=== PATIENT | male | born 1990 | race African-American/Black ===

== ENCOUNTER 2020-02-06 06:28 | Inpatient (IN) | payer BC ==
--- NOTE | 2020-02-06 06:39 | PDOC ---
History of Present Illness - General Chief Complaint: Sickle Cell Crisis Stated Complaint: SICKLE CELL PAIN Time Seen by Provider: 02/06/20 06:39 History Source: Patient Exam Limitations: No Limitations - History of Present Illness Initial Comments: 02/06/20 06:55 This is a 29-year-old male who comes in complaining of pain in his low back radiating to his legs. Patient has a history of sickle cell anemia. Patient was at another facility 4 days ago and treated for similar symptoms. Patient said he felt better and now the pain is back. Patient otherwise denies any fevers or chills. Patient denies any abdominal pain chest pain cough congestion or any other symptoms. Allergies: as per nursing notes Past Medical History: none Social history: Lives with family. No smoking. No alcohol. No illicit drugs. Surgical history: None General: No fevers or chills, no weakness, no weight loss HEENT: No change in vision. No sore throat,. No ear pain CardioVascular: no chest discomfort. No shortness of breath Respiratory:No cough, or wheezing. Gastrointestinal: no nausea, vomiting, diarrhea or constipation, No rectal bleeding Genitourinary: No dysuria, hematuria, or frequency Musculoskeletal: No joint or muscle pain or swelling, sickle cell pain Neurologic: No headache, vertigo, dizziness or loss of consciousness Psychiatric: nor depression Skin: No rashes or easy bruising Endocrine: no increased thirst or abnormal weight change Allergic: no skin or latex allergy All other systems reviewed and normal Exam: General: Well-nourished well-developed individual, no acute distress HEENT: Throat: Normal, tonsils normal, no erythema or exudate Neck: Supple, no meningeal signs, no lymphadenopathy Eyes::Pupils equal reactive and round, extraocular motion intact Chest: Nontender to palpation Cardiac: S1-S2 normal, regular rate and rhythm, no murmurs rubs or gallops Respiratory: Lungs clear to auscultation bilateral Abdomen: Soft, nondistended, normal bowel sounds, there is no tenderness on palpation diffusely Back: There is no tenderness on palpation of the spine or paraspinal area. There is no tenderness on palpation of the sciatic notch area. Extremities: Warm, dry, no cyanosis, clubbing, or edema Skin: No rashes Neuro: Alert and oriented x3, CN II - XII intact, nonfocal exam with normal strength, normal sensation, normal reflexes, normal gait, Psych: Normal mood and affect Assessment and plan: This is a 29-year-old male with a exacerbation of his sickle cell fluids and labs were sent. Care this patient was transferred to Dr. Telles at 7 AM. Case discussed in detail with oncoming Emergency Physician including history, physical exam and ancillary studies. Oncoming Emergency Physician has assumed care for the patient and will complete the evaluation and treatment. Patient is aware of the plan. Pt is clinically unchanged and stable. Past History - Medical History Allergies/Adverse Reactions: Allergies Allergy/AdvReac Type Severity Reaction Status Date / Time No Known Allergies Allergy Verified 09/20/19 22:32 Home Medications: Ambulatory Orders Hydroxyurea [Droxia] 2,000 mg PO DAILY 02/26/12 oxyCODONE HCL [Oxycodone HCl] 5 mg PO PRN 09/20/19 COPD: No - Surgical History Cholecystectomy: Yes - Psycho-Social/Smoking History Smoking Status: No Smoking History: Never smoked Have you smoked in the past 12 months: No Number of Cigarettes Smoked Daily: 0 Discharge - Discharge Information Problems reviewed: Yes Clinical Impression/Diagnosis: Sickle cell anemia Qualifiers: Sickle-cell associated disorders: with unspecified crisis Qualified Code(s): D57.00 - Hb-SS disease with crisis, unspecified; D57.0 - Hb-SS disease with crisis - Follow up/Referral - Patient Discharge Instructions - Post Discharge Activity
[2020-02-06] MEDS ORDERED: SODIUM CHLORIDE 1,000 ML ONE (06:51)
[2020-02-06] MEDS ORDERED: HYDROmorphone HCL CARPU-JECT 1 MG/1 ML DISP.SYRIN IVPUSH ONE ×3 (06:54→10:33)
[2020-02-06] MEDS ORDERED: KETOROLAC TROMETHAMINE 30 MG/1 ML VIAL IVPUSH ONE (06:54)
[2020-02-06] MEDS ORDERED: KETOROLAC TROMETHAMINE 30 MG/1 ML VIAL ONE (06:59)
[2020-02-06] MEDS ORDERED: HYDROmorphone HCL CARPU-JECT 1 MG/1 ML DISP.SYRIN ONE ×2 (06:59→08:47)
[2020-02-06 08:30] LABS: ALBUMIN 4.3 g/dl (3.4-5.0); BILIRUBIN,TOTAL 4.4 mg/dL (0.2-1); CALCIUM 8.7 mg/dL (8.5-10.1); CREATININE 0.7 mg/dL (0.55-1.3); POTASSIUM 4.3 mmol/L (3.5-5.1); TOT PROT 7.5 g/dl (6.4-8.2)
[2020-02-06 08:31] LABS: BASO % 0.8 % (0-2.0); EOS % 7.1 % (0-4.5); HEMOGLOBIN 9.7 GM/dL (11.7-16.9); LYMPH % 37.3 % (8-40); MCH 38.1 pg (25.7-33.7); MCHC 34.7 g/dl (32.0-35.9); MEAN CELL VOLUME 109.7 fl (80-96); MEAN PLT VOLUME 8.7 fl (7.5-11.1); MONO % 8.3 % (3.8-10.2); NEUT % 46.5 % (42.8-82.8); PLATELET COUNT 213 K/MM3 (134-434); RBC 2.55 M/mm3 (4.00-5.60); RDW 18.9 % (11.9-15.9); WHITE BLOOD COUNT 7.6 K/mm3 (4.0-10.0)
[2020-02-06 08:33] LABS: RETICULOCYTES 4.66 % (0.5-1.5)
[2020-02-06 09:51] LABS: ANISOCYTOSIS 1+; MACROCYTOSIS 1+; PLATELET ESTIMATE NORMAL; TARGET CELLS 1+
[2020-02-06] MEDS ORDERED: HYDROmorphone HCl 2 MG/ML VIAL ONE (10:34)
--- NOTE | 2020-02-06 14:16 | PDOC ---
*Physical Exam - Vital Signs Last Vital Signs Temp Pulse Resp BP Pulse Ox 98.2 F 58 L 17 128/79 100 02/06/20 06:40 02/06/20 13:29 02/06/20 13:29 02/06/20 13:29 02/06/20 13:29 ED Treatment Course - LABORATORY CBC & Chemistry Diagram: 02/06/20 07:12 02/06/20 07:12 - ADDITIONAL ORDERS Additional order review: Laboratory Results 02/06/20 07:12 Sodium 141 Potassium 4.3 Chloride 109 H Carbon Dioxide 25 Anion Gap 7 L BUN 13.0 Creatinine 0.7 Est GFR (CKD-EPI)AfAm 145.74 Est GFR (CKD-EPI)NonAf 125.75 Random Glucose 97 Calcium 8.7 Total Bilirubin 4.4 H AST 54 H ALT 49 Alkaline Phosphatase 95 Total Protein 7.5 Albumin 4.3 02/06/20 07:12 RBC 2.55 L MCV 109.7 H MCHC 34.7 RDW 18.9 H MPV 8.7 Neutrophils % 46.5 Lymphocytes % 37.3 Monocytes % 8.3 Eosinophils % 7.1 H Basophils % 0.8 - Medications Given in the ED: ED Medications Discontinued Medications Generic Name Dose Route Start Last Admin Trade Name Freq PRN Reason Stop Dose Admin Hydromorphone HCl 1 mg 02/06/20 06:54 02/06/20 07:24 Dilaudid Injection - IVPUSH 02/06/20 06:55 1 mg ONCE ONE Administration Hydromorphone HCl 1 mg 02/06/20 08:46 02/06/20 08:54 Dilaudid Injection - IVPUSH 02/06/20 08:47 1 mg ONCE ONE Administration Hydromorphone HCl 2 mg 02/06/20 10:33 02/06/20 10:30 Dilaudid Injection - IVPUSH 02/06/20 10:34 2 mg ONCE ONE Administration Sodium Chloride 1,000 mls @ 1,000 mls/hr 02/06/20 06:51 02/06/20 07:24 Normal Saline - IV 02/06/20 07:50 1,000 mls/hr .Q1H ONE Administration Ketorolac Tromethamine 30 mg 02/06/20 06:54 02/06/20 07:25 Toradol Injection - IVPUSH 02/06/20 06:55 30 mg ONCE ONE Administration Medical Decision Making - Medical Decision Making 02/06/20 14:14 Sign out taken from Dr. Dukes at 7am. Pt is 29 M with SCD presenting with sickle cell pain crisis. Labs consistent with sickle cell crisis. Pt received 3 rounds of IV dilaudid, still reporting persistent pain. Will admit for pain control Discharge - Discharge Information Problems reviewed: Yes Clinical Impression/Diagnosis: Back pain, Sickle cell crisis Sickle cell anemia Qualifiers: Sickle-cell associated disorders: with unspecified crisis Qualified Code(s): D57.00 - Hb-SS disease with crisis, unspecified - Admission Yes - Follow up/Referral - Patient Discharge Instructions - Post Discharge Activity
--- NOTE | 2020-02-06 15:04 | HP ---
CHIEF COMPLAINT: Low back pain PCP: None Hematology: Dr. Gaviria HISTORY OF PRESENT ILLNESS: This is a 29-year-old male with hx of sickle cell anemia,who comes in c/o worsening low back pain which radiates down to both legs. Pt reports that he was in [facility] until Friday when he started having lower back pain radiates down to his legs, took Percocet at home with no significant pain relief. Went to [facility] emergency room on Friday, and he received Morphine, Dilaudid and discharged to home. Pt reports that pain never went away completely, and woke up early this morning with severe low back pain pain, came to ER for pain management. Pt denies ALLEN, dizziness, weakness, cp, sob, cough,palpitations, abdominal pain, N/V/D or urinary symptoms. Pt received Morphine,Dilaudid and Toradol and IVF with some relief. Pt placed on observation for pain management. ER course was notable for: (1)wbc 7.6, Hgb 9.7, Hct 28 (2)Na 141, K 4.3, bun 13, ,cre 0.7 (3) CXR ordered Recent Travel:No and no known exposure to Covid PAST MEDICAL HISTORY: As mentioned above PAST SURGICAL HISTORY: GB removal in 2001 Rt Hip procedure 2006 Social History: Smoking:No Alcohol: Social ( rare) Drugs: None * Family hx Mother: Sickle cell trait, HTN, renal transplant Father - Sickle cell trait Siblings 5 one sister at age 7 due to sickle cell crisis 2 siblings have sickle cell trait, one sibling is free of sickle cell Allergies No Known Allergies Allergy (Verified 02/06/20 07:33) HOME MEDICATIONS: Home Medications Medication Instructions Recorded Hydroxyurea [Droxia] 2,000 mg PO DAILY 02/26/12 oxyCODONE HCL [Oxycodone HCl] 5 mg PO PRN 09/20/19 Folic Acid 1 mg PO DAILY 02/06/20 REVIEW OF SYSTEMS CONSTITUTIONAL: Absent: fever, chills, diaphoresis, generalized weakness, malaise, loss of appetite, weight change HEENT: Absent: rhinorrhea, nasal congestion, throat pain, throat swelling, difficulty swallowing, mouth swelling, ear pain, eye pain, visual changes CARDIOVASCULAR: Absent: chest pain, syncope, palpitations, irregular heart rate, lightheadedness, peripheral edema RESPIRATORY: Absent: cough, shortness of breath, dyspnea with exertion, orthopnea, wheezing, stridor, hemoptysis GASTROINTESTINAL: Absent: abdominal pain, abdominal distension, nausea, vomiting, diarrhea, constipation, melena, hematochezia GENITOURINARY: Absent: dysuria, frequency, urgency, hesitancy, hematuria, flank pain, genital pain MUSCULOSKELETAL: Low back pain radiates to both legs Absent: myalgia, arthralgia, joint swelling, back pain, neck pain SKIN: Absent: rash, itching, pallor HEMATOLOGIC/IMMUNOLOGIC: Absent: easy bleeding, easy bruising, lymphadenopathy, frequent infections ENDOCRINE: Absent: unexplained weight gain, unexplained weight loss, heat intolerance, cold intolerance NEUROLOGIC: Absent: headache, focal weakness or paresthesias, dizziness, unsteady gait, seizure, mental status changes, bladder or bowel incontinence PSYCHIATRIC: Absent: anxiety, depression, suicidal or homicidal ideation, hallucinations. PHYSICAL EXAMINATION Vital Signs - 24 hr 02/06/20 02/06/20 02/06/20 06:40 10:26 13:29 Temperature 98.2 F Pulse Rate 70 Pulse Rate [ 59 L 58 L Left] Respiratory 18 16 17 Rate Blood Pressure 131/80 Blood Pressure 137/88 128/79 [Right Arm] O2 Sat by Pulse 96 100 100 Oximetry (%) GENERAL: Awake, alert, and fully oriented, in no acute distress. HEAD: Normal with no signs of trauma. EYES: Pupils equal, round and reactive to light, extraocular movements intact, sclera anicteric, conjunctiva clear. No lid lag. EARS, NOSE, THROAT: Ears normal, nares patent, oropharynx clear without exudates. Moist mucous membranes. NECK: Normal range of motion, supple without lymphadenopathy, JVD, or masses. LUNGS: Breath sounds equal, clear to auscultation bilaterally. No wheezes, and no crackles. No accessory muscle use. HEART: Regular rate and rhythm, normal S1 and S2 without murmur, rub or gallop. ABDOMEN: Soft, nontender, not distended, normoactive bowel sounds, no guarding, no rebound, no masses. No hepatomegaly or splenomegaly. MUSCULOSKELETAL: Normal range of motion at all joints. No bony deformities or tenderness. No CVA tenderness. UPPER EXTREMITIES: 2+ pulses, warm, well-perfused. No cyanosis. No clubbing. No peripheral edema. LOWER EXTREMITIES: 2+ pulses, warm, well-perfused. No calf tenderness. No peripheral edema. NEUROLOGICAL: Cranial nerves II-XII intact. Normal speech. Normal gait. PSYCHIATRIC: Cooperative. Good eye contact. Appropriate mood and affect. SKIN: Warm, dry, normal turgor, no rashes or lesions noted, normal capillary refill. Laboratory Results - last 24 hr 02/06/20 02/06/20 07:12 07:12 WBC 7.6 RBC 2.55 L Hgb 9.7 L Hct 28.0 L MCV 109.7 H MCH 38.1 H MCHC 34.7 RDW 18.9 H Plt Count 213 MPV 8.7 Absolute Neuts (auto) 3.5 Neutrophils % 46.5 Neutrophils % (Manual) 38.4 L Band Neutrophils % 0.0 Lymphocytes % 37.3 Lymphocytes % (Manual) 51.5 H Monocytes % 8.3 Monocytes % (Manual) 6 Eosinophils % 7.1 H Eosinophils % (Manual) 3.0 Basophils % 0.8 Basophils % (Manual) 0.0 Myelocytes % (Man) 1 Promyelocytes % (Man) 0 Blast Cells % (Manual) 0 Nucleated RBC % 5 H Metamyelocytes 0 Hypochromia 0 Platelet Estimate Normal Polychromasia 1+ Poikilocytosis 1+ Anisocytosis 1+ Microcytosis 0 Macrocytosis 1+ Target Cells 1+ Retic Count 4.66 H Sodium 141 Potassium 4.3 Chloride 109 H Carbon Dioxide 25 Anion Gap 7 L BUN 13.0 Creatinine 0.7 Est GFR (CKD-EPI)AfAm 145.74 Est GFR (CKD-EPI)NonAf 125.75 Random Glucose 97 Calcium 8.7 Total Bilirubin 4.4 H AST 54 H ALT 49 Alkaline Phosphatase 95 Total Protein 7.5 Albumin 4.3 ASSESSMENT/PLAN: 29-year-old male with hx of sickle cell anemia, here with sickle cell crisis. * Sickle cell crisis - pain control - IV hydration - will cont on Hydroxyurea and Folic acid * Anemia - unknown baseline - no overt signs of bleeding noted - will f/u on CBC * F/E/N - Regular diet, IVF,replace electrolyte as needed * VTE: Lovenox * Dispo: Anticipate DC home in AM Family Medical History Family History: Denies Visit type - Emergency Visit Emergency Visit: Yes Care time: The patient presented to the Emergency Department on the above date and was hospitalized for further evaluation of their emergent condition. - New Patient This patient is new to me today: Yes Date on this admission: 02/06/20 - Critical Care Critical Care patient: No
[2020-02-06] MEDS ORDERED: SODIUM CHLORIDE 0.45% 1,000 ML IV SCH (15:15)
[2020-02-06] MEDS ORDERED: DOCUSATE SODIUM 100 MG CAPSULE (FP) PO PRN (15:16)
[2020-02-06] MEDS: HYDROmorphone HCl 2 MG/ML VIAL IVPB PRN ×2 (16:00→21:38)
[2020-02-06] MEDS: FOLIC ACID 1 MG TABLET (FP) PO SCH (16:00)
[2020-02-06 16:14] VITALS: BMI 22.8
[2020-02-06] MEDS: ENOXAPARIN NA (PORCINE) 40 MG/0.4 ML DISP.SYRIN SQ SCH (16:15)
[2020-02-06] MEDS: HYDROXYUREA 500 MG CAPSULE PO SCH (17:21)
[2020-02-06] MEDS: KETOROLAC TROMETHAMINE 30 MG/1 ML VIAL IVPUSH PRN (17:22)
[2020-02-06] MEDS: ACETAMINOPHEN 325 MG TABLET (FP) PO PRN (17:46)
[2020-02-06] MEDS: oxyCODONE HCL 5 MG TABLET PO PRN (20:01)
[2020-02-07] MEDS: KETOROLAC TROMETHAMINE 30 MG/1 ML VIAL IVPUSH PRN ×2 (02:14→10:10)
[2020-02-07] MEDS: oxyCODONE HCL 5 MG TABLET PO PRN ×5 (07:09→23:39)
[2020-02-07] MEDS: ACETAMINOPHEN 325 MG TABLET (FP) PO PRN ×4 (07:55→23:38)
[2020-02-07 08:18] LABS: HEMOGLOBIN 9.1 GM/dl (11.7-16.9); MCHC 32.5 g/dl (32.0-35.9); MEAN CELL VOLUME 116.7 fl (80-96); MEAN PLT VOLUME 8.8 fl (7.5-11.1); PLATELET COUNT 265 K/MM3 (134-434); RDW 19.5 % (11.9-15.9); WHITE BLOOD COUNT 10.7 K/mm3 (4.0-10.8)
[2020-02-07 08:23] LABS: ACTIVATED PTT 25.9 SECONDS (25.2-36.5)
[2020-02-07 08:25] LABS: ALBUMIN 3.8 g/dl (3.4-5.0); BILIRUBIN,TOTAL 3.6 mg/dl (0.2-1); CALCIUM 8.7 mg/dl (8.5-10); CREATININE 0.6 mg/dl (0.55-1.3); POTASSIUM 3.9 mmol/L (3.5-5.1); TOT PROT 6.7 g/dl (6.4-8.2)
--- NOTE | 2020-02-07 08:26 | PN ---
"Physical Exam: SUBJECTIVE: Patient seen and examined. Has lower back pain which goes into both upper thighs. Described as a throbbing pain typical of previous crises. Pain at its worst yesterday was 8/10. Today 5/10. His baseline, day to day pain is 4/10 which he manages with percocet. Has bee eating, urinating, walking to the bathroom without difficulty. OBJECTIVE: Vital Signs Period Temp Pulse Resp BP Sys/Fox Pulse Ox Last 24 Hr 97.8 F-98.6 F 57-66 16-18 118-137/68-88 96-100 GENERAL: The patient is awake, alert, and fully oriented, in no acute distress. Appears relaxed, conversational, lying in bed with legs crossed. LUNGS: Breath sounds equal, clear to auscultation bilaterally, no wheezes, no crackles, no accessory muscle use. HEART: Regular rate and rhythm, S1, S2 ABDOMEN: Soft, nontender, nondistended MUSCULO: no joint swelling, tenderness EXTREMITIES: 2+ pulses, warm, well-perfused, no edema. No calf tenderness. NEUROLOGICAL: Cranial nerves II through XII grossly intact. Normal speech, self- positions easily. Laboratory Results - last 24 hr 02/06/20 02/06/20 02/06/20 07:12 07:12 20:20 WBC 7.6 RBC 2.55 L Hgb 9.7 L Hct 28.0 L MCV 109.7 H MCH 38.1 H MCHC 34.7 RDW 18.9 H Plt Count 213 MPV 8.7 Absolute Neuts (auto) 3.5 Neutrophils % 46.5 Neutrophils % (Manual) 38.4 L Band Neutrophils % 0.0 Lymphocytes % 37.3 Lymphocytes % (Manual) 51.5 H Monocytes % 8.3 Monocytes % (Manual) 6 Eosinophils % 7.1 H Eosinophils % (Manual) 3.0 Basophils % 0.8 Basophils % (Manual) 0.0 Myelocytes % (Man) 1 Promyelocytes % (Man) 0 Blast Cells % (Manual) 0 Nucleated RBC % 5 H Metamyelocytes 0 Hypochromia 0 Platelet Estimate Normal Polychromasia 1+ Poikilocytosis 1+ Anisocytosis 1+ Microcytosis 0 Macrocytosis 1+ Target Cells 1+ Retic Count 4.66 H Sodium 141 Potassium 4.3 Chloride 109 H Carbon Dioxide 25 Anion Gap 7 L BUN 13.0 Creatinine 0.7 Est GFR (CKD-EPI)AfAm 145.74 Est GFR (CKD-EPI)NonAf 125.75 Random Glucose 97 Calcium 8.7 Total Bilirubin 4.4 H AST 54 H ALT 49 Alkaline Phosphatase 95 Total Protein 7.5 Albumin 4.3 Urine Color Yellow Urine Appearance Clear Urine pH 5.5 Urine Protein Negative Urine Glucose (UA) Negative Urine Ketones Negative Urine Blood Negative Urine Nitrite Negative Urine Bilirubin Negative Urine Urobilinogen 1.0 Ur Leukocyte Esterase Negative Urine RBC Cancelled Urine WBC Cancelled Ur Transition Epith Cell Cancelled Urine Crystals Cancelled Calcium Oxalate Crystal Cancelled Uric Acid Crystals Cancelled Triple Phos Crystals Cancelled Amorphous Phosphates Cancelled Amorphous Urates Cancelled Amorphous Sediment Cancelled Urine Bacteria Cancelled Urine Casts Cancelled Hyaline Casts Cancelled Granular Casts Cancelled Waxy Casts Cancelled RBC Casts Cancelled WBC Casts Cancelled Urine Mucus Cancelled Urine Other Cancelled Urine Trichomonas Cancelled Urine Yeast Cancelled Active Medications Generic Name Dose Route Start Last Admin Trade Name Jameq PRN Reason Stop Dose Admin Acetaminophen 650 mg 02/06/20 15:30 02/07/20 07:55 Tylenol - PO 650 mg Q4H PRN Administration PAIN 1-5 Docusate Sodium 100 mg 02/06/20 15:16 Colace - PO BID PRN CONSTIPATION Enoxaparin Sodium 40 mg 02/06/20 15:30 02/06/20 16:15 Lovenox - SQ 40 mg DAILY JEREMIAH Administration Folic Acid 1 mg 02/06/20 15:00 02/06/20 16:00 Folic Acid - PO 1 mg DAILY JEREMIAH Administration Hydromorphone HCl 1 mg 02/06/20 15:12 02/06/20 21:38 Dilaudid Vial - IVPB 1 mg Q6H PRN Administration PAIN LEVEL 7 - 10 Hydroxyurea 2,000 mg 02/06/20 15:00 02/06/20 17:21 Hydrea - PO 2,000 mg DAILY JEREMIAH Administration Sodium Chloride 1,000 mls @ 125 mls/hr 02/06/20 15:15 02/06/20 16:14 1/2 Normal Saline IV 125 mls/hr ASDIR JEREMIAH Administration Ketorolac Tromethamine 30 mg 02/06/20 15:11 02/07/20 02:14 Toradol Injection - IVPUSH 02/11/20 17:59 30 mg Q8H-IV PRN Administration PAIN LEVEL 4 - 6 Oxycodone HCl 10 mg 02/06/20 15:30 02/07/20 07:09 Roxicodone - PO 10 mg Q4H PRN Administration PAIN 1-5 Rail Transit Operator: Dr. Anish Gaviria, [facility] & Hematology, Adrian Mcpherson; [phone] ASSESSMENT/PLAN 29 year male with a PMH significant for sickle cell anemia, followed by Dr. Gaviria at [facility]. Admitted for sickle cell crisis. Sickle cell crisis --Hb-SS disease, last seen by Dr. Gaviria 12/01/19 --retic count 4.66 --four days ago treated and released from [facility] for right thigh pain; this was first ED visit in a year for sickle cell; patient thought he was better and could manage on his regular dosing of percocet; woke up Friday morning with low back pain radiating into both thighs and came to [facility] for treatment --pain is improved today, close to baseline --continue dilaudid, toradol, and oxycodone --continue hydroxyurea, folic acid --continue IV fluids, continue O2 --pre post, PT --PT FEN Fluids: 1/2NS@125mL/hr Electrolytes: replete as indicated Nutrition: regular diet DVT prophylaxis: subq lovenox, oob, ambulation Physical therapy Dispo: continues to require inpatient care. Full code. I STOP Search Terms: Buddy Harding, 1990Search Date: 02/07/2020 08:09:32 AM The Drug Utilization Report below displays all of the controlled substance prescriptions, if any, that your patient has filled in the last twelve months. The information displayed on this report is compiled from pharmacy submissions to the Department, and accurately reflects the information as submitted by the pharmacies. This report was requested by: Nora Rosa | Reference #: [id number] Others' Prescriptions Patient Name: Buddy HardingBirth Date: 1990 Address: [address] [id number]: Male Rx Written Rx Dispensed Drug Quantity Days Supply Prescriber Name Payment Method Dispenser 03/31/2019 04/06/2019 oxycodone-acetaminophen 5-325 mg tablet 80 20 Anish Gaviria MD [facility] #[id number] Patient Name: Buddy Crowder Date: 1990 Address: [address] [place] [address] [address] [place], [place] [address]Tvs: Male Rx Written Rx Dispensed Drug Quantity Days Supply Prescriber Name Payment Method Dispenser 12/01/2019 12/06/2019 oxycodone-acetaminophen 5-325 mg tablet 120 [address] [facility] 09/03/2019 09/06/2019 oxycodone-acetaminophen 5-325 mg tablet 80 [address] [facility] * - Drugs marked with an asterisk are compound drugs. If the compound drug is made up of more than one controlled substance, then each controlled substance will be a separate row in the table. Visit type - Emergency Visit Emergency Visit: Yes ED Registration Date: 02/06/20 Care time: The patient presented to the Emergency Department on the above date and was hospitalized for further evaluation of their emergent condition. - New Patient This patient is new to me today: Yes Date on this admission: 02/07/20 - Critical Care Critical Care patient: No"
[2020-02-07 08:27] LABS: INR 1.25 (0.82-1.09); PROTHROMBIN TIME (PATIENT) 13.9 SEC (10.2-13.0)
[2020-02-07 08:28] LABS: BILIRUBIN,DIRECT 0.3 mg/dL (0.0-0.2); MAGNESIUM 1.8 mg/dL (1.8-2.4)
[2020-02-07 08:32] LABS: ADD RBC MORPHOLOGY YES
[2020-02-07] MEDS: HYDROmorphone HCl 2 MG/ML VIAL IVPB PRN ×3 (08:42→21:43)
[2020-02-07 09:12] LABS: ANISOCYTOSIS 2+; MACROCYTOSIS 2+
[2020-02-07 09:13] LABS: HOWELL-JOLLY BODIES SEEN; PLATELET ESTIMATE ADEQUATE; TARGET CELLS FEW
[2020-02-07] MEDS ORDERED: PT OWN MED DRAWER 7, Y5N ONE (09:53)
[2020-02-07] MEDS ORDERED: FOLIC ACID 1 MG TABLET (FP) PO SCH (10:00)
[2020-02-07] MEDS: HYDROXYUREA 500 MG CAPSULE PO SCH (10:09)
[2020-02-07] MEDS: ENOXAPARIN NA (PORCINE) 40 MG/0.4 ML DISP.SYRIN SQ SCH (10:09)
[2020-02-07] MEDS: FOLIC ACID 1 MG TABLET (FP) PO SCH (10:09)
[2020-02-08] MEDS: HYDROmorphone HCl 2 MG/ML VIAL IVPB PRN (04:13)
[2020-02-08] MEDS: oxyCODONE HCL 5 MG TABLET PO PRN (06:51)
[2020-02-08] MEDS: ACETAMINOPHEN 325 MG TABLET (FP) PO PRN (06:52)
[2020-02-08] MEDS ORDERED: PT OWN MED DRAWER 7, Y5N ONE (09:20)
[2020-02-08] MEDS: KETOROLAC TROMETHAMINE 30 MG/1 ML VIAL IVPUSH PRN (09:23)
[2020-02-08] MEDS: HYDROXYUREA 500 MG CAPSULE PO SCH (09:24)
[2020-02-08] MEDS: FOLIC ACID 1 MG TABLET (FP) PO SCH (09:24)
[2020-02-08] MEDS: ENOXAPARIN NA (PORCINE) 40 MG/0.4 ML DISP.SYRIN SQ SCH (09:24)
--- NOTE | 2020-02-08 09:30 | DS ---
"Physical Exam: SUBJECTIVE: Pt with improved pain currently. He has walked with PT 130 feet and is able to tolerate daily activities. Patient ready to go home, but will rest at home. No SOB, denies CP. H/H stable OBJECTIVE: Vital Signs Period Temp Pulse Resp BP Sys/Fox Pulse Ox Last 24 Hr 98.3 F-98.6 F 62-70 17-18 115-123/53-66 94-100 PHYSICAL EXAM GENERAL: The patient is awake, alert, and fully oriented, in no acute distress. HEENT: NC/At, EOMI, LIA, MMM LUNGS: CTA bilaterally, no wheezes, no crackles, no accessory muscle use. HEART: RRR, S1, S2 with 2/6 systolic murmur at apex (chronic). ABDOMEN: Soft, Nt/ND, normoactive bowel sounds, no guarding, no rebound. No splenomegaly appreciated EXTREMITIES: 2+ pulses, warm, well-perfused, no edema. PSYCH: Normal mood, normal affect. SKIN: Warm, dry, no rashes or lesions noted. LABS Laboratory Results - last 24 hr 02/07/20 07:06 Sickle Cell Screen Positive CBC, BMP 02/07/20 07:06 02/07/20 07:06 HOSPITAL COURSE: Date of Admission:02/06/20 Date of Discharge: 02/08/20 Patient was admitted with lower extremity b/l diffuse pain found to be in sickle crisis. Patient was treated with pain medication, oxygen and supportive care. He never developed any signs of acute chest syndrome. Patient's H/H remained stable at 9.1/28 throughout his stay and he never required any transfusional support. Patient had pain improve with rest and care and was able to walk 130 ft with PT prior to discharge. He is tolerating food and he is able to maintain his daily activities. He reports having oxycodone 5mg at home for PRN pain and has not required IV pain management within 24hrs. Patient is being discharged in stable condition and understands he should come back to the ER for worsening pain or immediately if SOB or chest pain develop. Patient was iSTOP reviewed by previous provider as seen here: I STOP Search Terms: Buddy Harding, 1990Search Date: 02/07/2020 08:09:32 AM The Drug Utilization Report below displays all of the controlled substance prescriptions, if any, that your patient has filled in the last twelve months. The information displayed on this report is compiled from pharmacy submissions to the Department, and accurately reflects the information as submitted by the pharmacies. This report was requested by: Nora Rosa | Reference #: [id number] Others' Prescriptions Patient Name: Buddy HardingBirth Date: 1990 Address: [address] [place] [id number]: Male Rx Written Rx Dispensed Drug Quantity Days Supply Prescriber Name Payment Method Dispenser 03/31/2019 04/06/2019 oxycodone-acetaminophen 5-325 mg tablet 80 20 Anish Gaviria MD [facility] #[id number] Patient Name: Budyd Crowder Date: 1990 Address: [address] [place], [place] [address]Bqb: Male Rx Written Rx Dispensed Drug Quantity Days Supply Prescriber Name Payment Method Dispenser 12/01/2019 12/06/2019 oxycodone-acetaminophen 5-325 mg tablet 120 30 Anish Gaviria MD [facility] 09/03/2019 09/06/2019 oxycodone-acetaminophen 5-325 mg tablet 80 20 Anish Gaviria MD [facility] * - Drugs marked with an asterisk are compound drugs. If the compound drug is made up of more than one controlled substance, then each controlled substance will be a separate row in the table. He is to follow with his PMD and pain care physician. Minutes to complete discharge: 33 Discharge Summary Problems reviewed: Yes Reason For Visit: SICKLE CELL DISEASE Current Active Problems Back pain (Acute) Sickle cell anemia (Acute) Sickle cell crisis (Acute) Condition: Stable - Instructions Diet, Activity, Other Instructions: You were seen here for your sickle cell pain. You were treated with pain medica tion, oxygen, and supportive care and your pain improved. Your blood count stayed normal and your pain improved. MEDICATIONS: Please continue to take your home pain medication as needed to help. Please feel free to use Tylenol and NSAID medications (advil, aleve, motrin) to aid in pain too Please do not exert yourself over the next couple of days until your pain has continued to improve FOLLOW-UP: Please follow-up with your PMD, Dr. Gaviria, within 1 week Referrals: Anish Gaviria [Non Staff, Medical] - 1 Week Disposition: HOME - Home Medications Comprehensive Discharge Medication List: Ambulatory Orders Hydroxyurea [Droxia] 2,000 mg PO DAILY 02/26/12 oxyCODONE HCL [Oxycodone HCl] 5 mg PO PRN 09/20/19 Folic Acid 1 mg PO DAILY 02/06/20 This patient is new to me today: Yes Date on this admission: 02/08/20 Emergency Visit: Yes ED Registration Date: 02/06/20 Care time: The patient presented to the Emergency Department on the above date and was hospitalized for further evaluation of their emergent condition. Critical Care patient: No - Discharge Referral Referred to [facility] No"
[2020-02-08 13:56] VITALS: BP 132/57; PULSE 70; TEMP 98.3
[2020-02-10 18:07] LABS: HGB SOLUBILITY Positive (Negative); Hgb C 0 % (0.0); Hgb F 16.2 % (0.0-2.0); Hgb S 78.9 % (0.0)
== END 2020-02-08 14:19 | disposition home or self-care (01) | DRG 812 ==
LOC: FER 06:28 → FM/S 14:27 → UNDOADMOB 14:27 → OBSVTOIN 15:42 → INTOOBSV 15:42 → OBSVTOIN 02-07 15:42 → FM/S 02-07 15:42
PROVIDERS: ADMIT Internal Medicine; ATTEND Internal Medicine
DX: D57.00 Hb-SS disease with crisis, unspecified (principal); M54.9 Dorsalgia, unspecified; D64.9 Anemia, unspecified
CPT/HCPCS: 36415; 71046-TC-FY; 80053; 81003; 82248; 83021; 83735; 85025; 85045; 85610; 85660; 85730; 97116-GP; 97162-GP; 99285-25; G0378; J8999; U0003

== ENCOUNTER 2021-08-05 03:22 | Observation (INO) | payer BC ==
[2021-08-05] MEDS ORDERED: SODIUM CHLORIDE 1,000 ML IV STA (03:39)
[2021-08-05] MEDS ORDERED: HYDROmorphone HCL CARPU-JECT 1 MG/1 ML DISP.SYRIN IVPUSH ONE (03:39)
[2021-08-05] MEDS ORDERED: HYDROmorphone HCL/PF 1 MG/ML VIAL ONE (03:41)
[2021-08-05] MEDS ORDERED: HYDROmorphone HCL CARPU-JECT 2 MG/1 ML DISP.SYRIN IVPUSH ONE ×4 (05:24→13:50)
[2021-08-05] MEDS ORDERED: HYDROmorphone HCl 2 MG/ML VIAL ONE ×4 (05:25→14:02)
[2021-08-05 05:49] LABS: EOS % 4.4 % (0-4.5); HEMATOCRIT 29.8 % (35.4-49); HEMOGLOBIN 10.5 GM/dL (11.7-16.9); LYMPH % 24.1 % (8-40); MCH 37.7 pg (25.7-33.7); MCHC 35.3 g/dl (32.0-35.9); MEAN CELL VOLUME 106.9 fl (80-96); MEAN PLT VOLUME 9.3 fl (7.5-11.1); NEUT % 61.5 % (42.8-82.8); PLATELET COUNT 203 10^3/uL (134-434); RBC 2.79 M/mm3 (4.00-5.60); RDW 19.2 % (11.9-15.9); WHITE BLOOD COUNT 11.3 K/mm3 (4.0-10.0)
[2021-08-05 05:52] LABS: INR 1.22 (0.83-1.09); PROTHROMBIN TIME (PATIENT) 14.1 SEC (9.7-13.0)
[2021-08-05 06:01] LABS: ALBUMIN 4.2 g/dl (3.4-5.0); BILIRUBIN,TOTAL 5.2 mg/dL (0.2-1); BLOOD UREA NITROGEN 14.9 mg/dL (7-18); CREATININE 0.8 mg/dL (0.55-1.3); TOT PROT 7.9 g/dl (6.4-8.2)
[2021-08-05 10:18] LABS: ANISOCYTOSIS 2+; MACROCYTOSIS 0
[2021-08-05] MEDS ORDERED: oxyCODONE HCL 5 MG TABLET PO PRN (14:43)
[2021-08-05] MEDS ORDERED: PATIENT'S OWN MEDICATION (NON-FORMULARY) (Oxycodone Hcl/Acetaminophen [Oxycodone-Acetamino PO PRN ×2 (14:46→14:47)
[2021-08-05] MEDS ORDERED: SODIUM CHLORIDE 0.45% 1,000 ML IV SCH (15:00)
[2021-08-05] MEDS ORDERED: SODIUM CHLORIDE 1,000 ML IV SCH (15:00)
[2021-08-05] MEDS ORDERED: DOCUSATE SODIUM 100 MG CAPSULE (FP) PO PRN (15:43)
[2021-08-05] MEDS: ENOXAPARIN NA (PORCINE) 40 MG/0.4 ML DISP.SYRIN SQ SCH (16:45)
[2021-08-05 17:09] VITALS: BMI 23.9
[2021-08-05 18:26] LABS: MAGNESIUM 1.9 mg/dL (1.8-2.4)
[2021-08-05] MEDS: HYDROmorphone HCl 2 MG/ML VIAL IVPUSH PRN (20:17)
[2021-08-06 02:02] VITALS: TEMP 98
[2021-08-06] MEDS: HYDROmorphone HCl 2 MG/ML VIAL IVPUSH PRN (06:07)
[2021-08-06] MEDS ORDERED: ACETAMINOPHEN 325 MG TABLET (FP) PO PRN (09:35)
[2021-08-06 09:44] LABS: CREATININE 0.7 mg/dl (0.55-1.3); TOT PROT 6.8 g/dl (6.4-8.2)
[2021-08-06 09:45] VITALS: BP 144/66; PULSE 81
[2021-08-06] MEDS ORDERED: oxyCODONE HCL 5 MG TABLET PO PRN (09:45)
[2021-08-06 09:55] LABS: EPITHELIAL CELLS RARE /hpf
[2021-08-06] MEDS ORDERED: HYDROXYUREA 500 MG CAPSULE PO SCH (10:00)
[2021-08-06] MEDS ORDERED: FOLIC ACID 1 MG TABLET (FP) PO SCH (10:00)
[2021-08-06 10:07] LABS: BASO % 0.8 % (0-2.0); EOS % 5.2 % (0-4.5); HEMATOCRIT 29.2 % (35.4-49); HEMOGLOBIN 10.1 GM/dL (11.7-16.9); LYMPH % 35.6 % (8-40); MCH 37.3 pg (25.7-33.7); MCHC 34.7 g/dl (32.0-35.9); MEAN CELL VOLUME 107.6 fl (80-96); MEAN PLT VOLUME 8.7 fl (7.5-11.1); MONO % 13.5 % (3.8-10.2); NEUT % 44.9 % (42.8-82.8); PLATELET COUNT 193 10^3/uL (134-434); RBC 2.72 M/mm3 (4.00-5.60); RDW 19.2 % (11.9-15.9); WHITE BLOOD COUNT 6.5 K/mm3 (4.0-10.0)
[2021-08-06] MEDS: ENOXAPARIN NA (PORCINE) 40 MG/0.4 ML DISP.SYRIN SQ SCH (10:28)
== END 2021-08-06 13:25 | disposition home or self-care (01) ==
LOC: FER 03:22 → FM/S 09:40
PROVIDERS: ADMIT Internal Medicine; ATTEND Nurse Practitioner Acute Care
PROC: 3E023GC Introduction of Other Therapeutic Substance into Muscle, Percutaneous Approach (ICD-10-PCS; principal; 2021-08-05)
PROC: 3E033NZ Introduction of Analgesics, Hypnotics, Sedatives into Peripheral Vein, Percutaneous Approach (ICD-10-PCS; 2021-08-05)
PROC: 3E0337Z Introduction of Electrolytic and Water Balance Substance into Peripheral Vein, Percutaneous Approach (ICD-10-PCS; 2021-08-05)
DX: D57.00 Hb-SS disease with crisis, unspecified (principal); M25.552 Pain in left hip; R26.2 Difficulty in walking, not elsewhere classified; Z29.9 Encounter for prophylactic measures, unspecified
CPT/HCPCS: 36415; 71046-TC-FY; 80053; 81003; 81015; 83735; 85025; 85045; 85610; 93005; 99285-25; C9803; G0378; J8999; U0003; U0005

== ENCOUNTER 2021-11-23 13:37 | Emergency (ER) | payer BC ==
[2021-11-23] MEDS ORDERED: SODIUM CHLORIDE 0.9% 500 ML INFUS.BAG IV ONE ×2 (13:48→15:46)
[2021-11-23] MEDS ORDERED: HYDROmorphone HCL CARPU-JECT 2 MG/1 ML DISP.SYRIN IVPUSH ONE (14:23)
[2021-11-23] MEDS ORDERED: HYDROmorphone HCl 2 MG/ML VIAL ONE (14:32)
[2021-11-23 15:39] VITALS: BP 138/72; PULSE 67; TEMP 98; BMI 24.1
[2021-11-23] MEDS ORDERED: HYDROmorphone HCL CARPU-JECT 1 MG/1 ML DISP.SYRIN IVPUSH ONE ×2 (15:46→17:01)
[2021-11-23] MEDS ORDERED: AMOXICILLIN 500 MG CAPSULE (FP) PO ONE (15:55)
[2021-11-23] MEDS ORDERED: AMOXICILLIN 250 MG CAPSULE ONE (16:03)
[2021-11-23] MEDS ORDERED: HYDROmorphone HCL/PF 1 MG/ML VIAL ONE ×2 (16:03→17:05)
== END 2021-11-23 18:43 | disposition home or self-care (01) ==
LOC: FER 13:37
PROC: 3E033GC Introduction of Other Therapeutic Substance into Peripheral Vein, Percutaneous Approach (ICD-10-PCS; principal; 2021-11-23)
DX: D57.00 Hb-SS disease with crisis, unspecified (principal); U07.1 COVID-19; J02.0 Streptococcal pharyngitis
CPT/HCPCS: 0241U-QW; 99284-25

== ENCOUNTER 2022-01-30 18:11 | Emergency (ER) | payer BC ==
[2022-01-30 18:37] VITALS: BP 124/63; PULSE 73; RESP 16; TEMP 99; BMI 24.1
[2022-01-30] MEDS ORDERED: SODIUM CHLORIDE 0.9% 500 ML INFUS.BAG IV ONE (18:47)
[2022-01-30] MEDS ORDERED: HYDROmorphone HCL CARPU-JECT 1 MG/1 ML DISP.SYRIN IVPUSH ONE (18:54)
[2022-01-30] MEDS ORDERED: HYDROmorphone HCL/PF 1 MG/ML VIAL ONE (19:13)
[2022-01-30 19:28] LABS: HEMATOCRIT 29.7 % (35.4-49); HEMOGLOBIN 10.5 G/dL (11.7-16.9); MCHC 35.4 g/dl (32.0-35.9); MEAN CELL VOLUME 112.8 fl (80-96); MEAN PLT VOLUME 7.6 fl (7.5-11.1); PLATELET COUNT 614.7 10^3/uL (134-434); RBC 2.63 10^6/uL (4.00-5.60); RDW 17.9 % (11.9-15.9); WHITE BLOOD COUNT 9.5 10^3/uL (4.0-10.8)
[2022-01-30] MEDS ORDERED: ONDANSETRON 4 MG/2 ML VIAL IVPB ONE (19:37)
[2022-01-30] MEDS ORDERED: ONDANSETRON 4 MG/2 ML VIAL ONE (19:38)
[2022-01-30 19:44] LABS: ALBUMIN 4.3 g/dl (3.4-5.0); BILIRUBIN,TOTAL 4.5 mg/dl (0.2-1); CALCIUM 9.5 mg/dl (8.5-10); CREATININE 0.8 mg/dl (0.55-1.3); TOT PROT 7.9 g/dl (6.4-8.2)
[2022-01-30 20:12] LABS: PLATELET ESTIMATE INCREASED
[2022-01-30 23:07] LABS: RETICULOCYTES 4.27 % (0.5-1.5)
== END 2022-01-30 21:35 | disposition home or self-care (01) ==
LOC: FER 18:11
PROC: 3E033NZ Introduction of Analgesics, Hypnotics, Sedatives into Peripheral Vein, Percutaneous Approach (ICD-10-PCS; principal; 2022-01-30)
PROC: 3E033GC Introduction of Other Therapeutic Substance into Peripheral Vein, Percutaneous Approach (ICD-10-PCS; 2022-01-30)
DX: D57.1 Sickle-cell disease without crisis (principal)
CPT/HCPCS: 36415; 80053; 85027; 85045; 99284-25

== ENCOUNTER 2022-04-24 16:40 | Emergency (ER) | payer BC ==
[2022-04-24 17:43] LABS: HEMATOCRIT 37.3 % (35.4-49); HEMOGLOBIN 12.4 G/dL (11.7-16.9); MCH 38.7 pg (25.7-33.7); MCHC 33.2 g/dl (32.0-35.9); MEAN CELL VOLUME 116.6 fl (80-96); MEAN PLT VOLUME 7.7 fl (7.5-11.1); PLATELET COUNT 695.3 10^3/uL (134-434); RDW 17.9 % (11.9-15.9); WHITE BLOOD COUNT 7.1 10^3/uL (4.0-10.8)
[2022-04-24 17:44] VITALS: BP 134/79; PULSE 73; RESP 18; TEMP 99; BMI 24.3
[2022-04-24 18:06] LABS: ALBUMIN 4.4 g/dl (3.4-5.0); BILIRUBIN,TOTAL 3.9 mg/dl (0.2-1); CALCIUM 9.4 mg/dl (8.5-10); CREATININE 0.7 mg/dl (0.55-1.3); TOT PROT 7.8 g/dl (6.4-8.2)
[2022-04-24 18:21] LABS: ANISOCYTOSIS 1+; MACROCYTOSIS 2+; PLATELET ESTIMATE INCREASED
[2022-04-24 19:41] LABS: RETICULOCYTES 4.07 % (0.5-1.5)
== END 2022-04-24 18:20 | disposition home or self-care (01) ==
LOC: FER 16:40
DX: D57.00 Hb-SS disease with crisis, unspecified (principal)
CPT/HCPCS: 36415; 71046-TC-FY; 80053; 85027; 85045; 93005; 99285-25

== ENCOUNTER 2023-03-04 16:38 | Emergency (ER) | payer BC ==
[2023-03-04 17:00] VITALS: BP 120/80; PULSE 66; RESP 16; TEMP 99.1; BMI 24.3
[2023-03-04] MEDS ORDERED: LIDOCAINE 5% TOPICAL PATCH TP ONE (17:57)
[2023-03-04] MEDS ORDERED: ACETAMINOPHEN 325 MG TABLET (FP) PO ONE (17:58)
[2023-03-04] MEDS ORDERED: ACETAMINOPHEN 500 MG TABLET (FP) ONE (18:08)
[2023-03-04] MEDS ORDERED: LIDOCAINE 5% TOPICAL PATCH ONE (18:08)
[2023-03-04] MEDS ORDERED: SODIUM CHLORIDE 0.9% 500 ML INFUS.BAG IV ONE (19:32)
[2023-03-04 19:44] LABS: HEMATOCRIT 34.9 % (35.4-49); HEMOGLOBIN 11.7 G/dL (11.7-16.9); MCHC 33.4 g/dl (32.0-35.9); MEAN CELL VOLUME 120.7 fl (80-96); MEAN PLT VOLUME 7.3 fl (7.5-11.1); PLATELET COUNT 538.1 10^3/uL (134-434); RBC 2.89 10^6/uL (4.00-5.60); RDW 16.6 % (11.9-15.9); WHITE BLOOD COUNT 6.8 10^3/uL (4.0-10.8)
[2023-03-04 19:45] LABS: MCH 40.4 pg (25.7-33.7)
[2023-03-04 19:57] LABS: INR 1.21 (0.83-1.09)
[2023-03-04 19:58] LABS: ALBUMIN 4.8 g/dl (3.4-5.0); BILIRUBIN,TOTAL 3.5 mg/dl (0.2-1); BLOOD UREA NITROGEN 10.5 mg/dl (7-18); CALCIUM 9.7 mg/dl (8.5-10.1); CREATININE 0.7 mg/dl (0.6-1.3); SGPT/ALT 137.1 U/L (7-52); TOT PROT 7.8 g/dl (6.4-8.2)
[2023-03-04 20:00] LABS: ACTIVATED PTT 29.7 SECONDS (25.2-36.5)
[2023-03-04 20:07] LABS: PLATELET ESTIMATE SLT INCREASE
[2023-03-04 20:22] LABS: ADD RBC MORPHOLOGY YES
[2023-03-04 20:23] LABS: ANISOCYTOSIS 1+; MACROCYTOSIS 2+; TARGET CELLS 1+
[2023-03-04] MEDS ORDERED: LIDOCAINE PATCH REMOVAL MC ONE (22:00)
[2023-03-04] MEDS ORDERED: morphine CARPU-JECT 4 MG/1 ML DISP.SYRIN IVPUSH ONE (22:32)
[2023-03-04 22:34] LABS: BASO % 0.7 % (0-2.0); EOS % 0.8 % (0-4.5); LYMPH % 51.2 % (8-40); MONO % 11.3 % (3.8-10.2); RETICULOCYTES 2.51 % (0.5-1.5)
[2023-03-04] MEDS ORDERED: morphine SULFATE 4 MG/ML VIAL ONE (22:35)
== END 2023-03-05 01:12 | disposition home or self-care (01) ==
LOC: FER 16:38
PROC: 3E033NZ Introduction of Analgesics, Hypnotics, Sedatives into Peripheral Vein, Percutaneous Approach (ICD-10-PCS; principal; 2023-03-04)
DX: M54.6 Pain in thoracic spine (principal); D57.1 Sickle-cell disease without crisis
CPT/HCPCS: 0241U-QW; 36415; 71045-TC-FY; 71275-TC; 72128-TC; 80053; 84484; 85025; 85045; 85610; 85730; 93005; 99285-25; Q9967

== ENCOUNTER 2023-10-02 07:29 | Observation (INO) | payer BC ==
[2023-10-02] MEDS ORDERED: ACETAMINOPHEN INJECTION 100 ML IVPB ONE (08:00)
[2023-10-02] MEDS ORDERED: HYDROmorphone HCl 2 MG/ML VIAL ONE ×2 (08:00→10:18)
[2023-10-02] MEDS: SODIUM CHLORIDE 0.9% 1000 ML INFUS.BAG IV ONE (08:40)
[2023-10-02] MEDS: HYDROmorphone HCl 2 MG/ML VIAL IVPUSH ONE ×2 (08:41→10:34)
[2023-10-02] MEDS: ACETAMINOPHEN 1000 MG/100 ML BAG IVPB ONE (08:42)
[2023-10-02 08:51] LABS: HEMATOCRIT 35.1 % (35.4-49); HEMOGLOBIN 11.3 G/dL (11.7-16.9); MCH 38.7 pg (25.7-33.7); MCHC 32.2 g/dl (32.0-35.9); MEAN CELL VOLUME 120.1 fl (80-96); MEAN PLT VOLUME 9.5 fl (7.5-11.1); PLATELET COUNT 206.2 10^3/uL (134-434); RBC 2.92 10^6/uL (4.00-5.60); RDW 16.8 % (11.9-15.9)
[2023-10-02 09:05] LABS: ALBUMIN 4.6 g/dl (3.4-5.0); BILIRUBIN,TOTAL 3.9 mg/dl (0.2-1); CALCIUM 9.4 mg/dl (8.5-10.1); CREATININE 0.8 mg/dl (0.6-1.3); POTASSIUM 3.5 mmol/L (3.5-5.1); TOT PROT 7.3 g/dl (6.4-8.2)
[2023-10-02 09:18] LABS: PLATELET ESTIMATE ADEQUATE
[2023-10-02 09:22] LABS: MACROCYTOSIS 2+
[2023-10-02 09:23] LABS: HOWELL-JOLLY BODIES 2+; TARGET CELLS FEW
[2023-10-02 09:55] LABS: RETICULOCYTES 5.83 % (0.5-1.5)
[2023-10-02 10:18] LABS: THROAT:GRP A STREP NOT DETECTED (NOTDETECTED)
[2023-10-02] MEDS ORDERED: morphine SULFATE 4 MG/ML VIAL IVPUSH PRN (12:44)
[2023-10-02] MEDS: DEXTROSE 5%-0.45% SALINE 1,000 ML IV SCH (12:50)
[2023-10-02] MEDS: KETOROLAC TROMETHAMINE 30 MG/1 ML VIAL IVPUSH SCH (13:36)
[2023-10-02] MEDS: guaiFENesin/D-METHORPHAN TAB.ER.12H PO SCH (13:38)
[2023-10-02] MEDS: FLUTICASONE PROP 0.05% 16 GM NASAL SPRAY NS SCH (13:39)
[2023-10-02] MEDS: LORATADINE 10 MG TABLET PO SCH (13:40)
[2023-10-02 13:53] LABS: BILIRUBIN,DIRECT 0.7 mg/dL (0.0-0.2)
[2023-10-02 14:12] VITALS: BMI 25.7
[2023-10-02] MEDS: AMPICILLIN NA/SULBACTAM NA 3 GM in SODIUM CHLORIDE 100 ML IVPB SCH (15:08)
[2023-10-02] MEDS: oxyCODONE HCL 5 MG TABLET PO PRN (16:18)
[2023-10-02] MEDS: ACETAMINOPHEN 1000 MG/100 ML BAG IVPB SCH (16:19)
[2023-10-02] MEDS ORDERED: ZOLPIDEM TARTRATE 5 MG TABLET PO PRN (22:00)
[2023-10-03 06:24] VITALS: PULSE 73; RESP 18
[2023-10-03 08:25] LABS: HEMOGLOBIN 10.1 G/dL (11.7-16.9); MCH 37.8 pg (25.7-33.7); MCHC 31.4 g/dl (32.0-35.9); MEAN CELL VOLUME 120.3 fl (80-96); PLATELET COUNT 244.7 10^3/uL (134-434); RBC 2.66 10^6/uL (4.00-5.60); RDW 16.7 % (11.9-15.9)
[2023-10-03 08:38] LABS: BILIRUBIN,TOTAL 2.7 mg/dl (0.2-1); CALCIUM 8.9 mg/dl (8.5-10.1); CREATININE 0.7 mg/dl (0.6-1.3); MAGNESIUM 1.8 mg/dL (1.8-2.4); POTASSIUM 3.8 mmol/L (3.5-5.1); TOT PROT 6.4 g/dl (6.4-8.2)
[2023-10-03 09:03] VITALS: BP 134/69; TEMP 97.8
[2023-10-03] MEDS: FOLIC ACID 1 MG TABLET (FP) PO SCH (09:31)
[2023-10-03] MEDS: HYDROXYUREA 500 MG CAPSULE PO SCH (09:32)
[2023-10-03] MEDS: ENOXAPARIN NA (PORCINE) 40 MG/0.4 ML DISP.SYRIN SQ SCH (09:33)
== END 2023-10-03 12:30 | disposition home or self-care (01) ==
LOC: FER 07:29 → FM/S 12:30
PROVIDERS: ADMIT Internal Medicine; ATTEND Internal Medicine
PROC: 3E033NZ Introduction of Analgesics, Hypnotics, Sedatives into Peripheral Vein, Percutaneous Approach (ICD-10-PCS; principal; 2023-10-02)
PROC: 3E03329 Introduction of Other Anti-infective into Peripheral Vein, Percutaneous Approach (ICD-10-PCS; 2023-10-02)
PROC: 3E0337Z Introduction of Electrolytic and Water Balance Substance into Peripheral Vein, Percutaneous Approach (ICD-10-PCS; 2023-10-02)
PROC: 3E033GC Introduction of Other Therapeutic Substance into Peripheral Vein, Percutaneous Approach (ICD-10-PCS; 2023-10-02)
PROC: 3E023GC Introduction of Other Therapeutic Substance into Muscle, Percutaneous Approach (ICD-10-PCS; 2023-10-02)
PROC: 3E0333Z Introduction of Anti-inflammatory into Peripheral Vein, Percutaneous Approach (ICD-10-PCS; 2023-10-02)
DX: D57.00 Hb-SS disease with crisis, unspecified (principal); N13.30 Unspecified hydronephrosis; G89.29 Other chronic pain; M25.551 Pain in right hip; R09.89 Other specified symptoms and signs involving the circulatory and respiratory systems
CPT/HCPCS: 0241U-QW; 36415; 71045-TC-FY; 76705-TC; 80053; 82248; 83615; 83735; 84100; 85027; 85045; 87040; 87651; 99285-25; G0378; J0131; J8999

== ENCOUNTER 2023-11-26 15:37 | Emergency (ER) | payer BC ==
[2023-11-26 15:57] VITALS: BP 132/84; PULSE 72; RESP 16; TEMP 98.5; BMI 25.0
[2023-11-26] MEDS ORDERED: HYDROmorphone HCl 2 MG/ML VIAL ONE ×2 (15:59→17:50)
[2023-11-26] MEDS: HYDROmorphone HCl 2 MG/ML VIAL IVPUSH ONE ×2 (16:01→17:55)
[2023-11-26] MEDS: SODIUM CHLORIDE 0.9% 500 ML INFUS.BAG IV ONE (16:02)
[2023-11-26 16:14] LABS: HEMATOCRIT 32.3 % (35.4-49); HEMOGLOBIN 10.4 G/dL (11.7-16.9); MCH 39.8 pg (25.7-33.7); MCHC 32.3 g/dl (32.0-35.9); MEAN CELL VOLUME 123.3 fl (80-96); MEAN PLT VOLUME 9.7 fl (7.5-11.1); RBC 2.62 10^6/uL (4.00-5.60); RDW 18.1 % (11.9-15.9); WHITE BLOOD COUNT 6.5 10^3/uL (4.0-10.8)
[2023-11-26 16:25] LABS: ALBUMIN 4.7 g/dl (3.4-5.0); BILIRUBIN,TOTAL 2.8 mg/dl (0.2-1); CALCIUM 9.5 mg/dl (8.5-10.1); CREATININE 0.7 mg/dl (0.6-1.3); POTASSIUM 4.1 mmol/L (3.5-5.1); TOT PROT 7.8 g/dl (6.4-8.2)
[2023-11-26 16:48] LABS: PLATELET ESTIMATE DECREASED
[2023-11-26 16:49] LABS: ANISOCYTOSIS 1+; MACROCYTOSIS 2+
[2023-11-26 18:09] LABS: RETICULOCYTES 2.52 % (0.5-1.5)
== END 2023-11-26 18:55 | disposition home or self-care (01) ==
LOC: FER 15:37
PROC: 3E033NZ Introduction of Analgesics, Hypnotics, Sedatives into Peripheral Vein, Percutaneous Approach (ICD-10-PCS; principal; 2023-11-26)
PROC: 3E033NZ Introduction of Analgesics, Hypnotics, Sedatives into Peripheral Vein, Percutaneous Approach (ICD-10-PCS; 2023-11-26)
DX: D57.00 Hb-SS disease with crisis, unspecified (principal)
CPT/HCPCS: 36415; 71045-TC-FY; 80053; 85027; 85045; 99284-25

== ENCOUNTER 2023-12-25 02:47 | Emergency (ER) | payer BC ==
[2023-12-25 02:55] VITALS: BMI 24.3
[2023-12-25] MEDS ORDERED: IBUPROFEN 600 MG TABLET (FP) PO ONE (03:13)
[2023-12-25] MEDS: IBUPROFEN 600 MG TABLET (FP) PO ONE (03:21)
[2023-12-25 03:55] VITALS: BP 115/81; PULSE 87; RESP 17; TEMP 99.1
[2023-12-25 04:38] LABS: THROAT:GRP A STREP NOT DETECTED (NOTDETECTED)
== END 2023-12-25 03:56 | disposition home or self-care (01) ==
LOC: FER 02:47
DX: R50.9 Fever, unspecified (principal); M79.10 Myalgia, unspecified site; R51.9 Headache, unspecified; J02.9 Acute pharyngitis, unspecified; B34.9 Viral infection, unspecified; Z20.822 Contact with and (suspected) exposure to COVID-19
CPT/HCPCS: 0241U-QW; 87651; 99283-25

== ENCOUNTER 2024-02-23 09:32 | Emergency (ER) | payer BC ==
[2024-02-23 10:30] VITALS: BP 126/84; PULSE 68; RESP 20; TEMP 98.8; BMI 23.7
[2024-02-23] MEDS ORDERED: HYDROmorphone HCL/PF 1 MG/ML VIAL ONE (10:42)
[2024-02-23] MEDS: HYDROmorphone HCl 2 MG/ML VIAL IVPB ONE (10:52)
[2024-02-23 11:29] LABS: HEMATOCRIT 30.4 % (35.4-49); HEMOGLOBIN 9.6 G/dL (11.7-16.9); MCH 38.5 pg (25.7-33.7); MCHC 31.4 g/dl (32.0-35.9); MEAN CELL VOLUME 122.7 fl (80-96); MEAN PLT VOLUME 10.1 fl (7.5-11.1); PLATELET COUNT 142.6 10^3/uL (134-434); RBC 2.48 10^6/uL (4.00-5.60); RDW 16.3 % (11.9-15.9); WHITE BLOOD COUNT 7.5 10^3/uL (4.0-10.8)
[2024-02-23] MEDS ORDERED: FAMOTIDINE 20 MG/50 ML IVPB 20 MG/50 ML MG IVPB ONE (11:32)
[2024-02-23] MEDS ORDERED: METHOCARBAMOL 500 MG TABLET ONE (12:02)
[2024-02-23] MEDS ORDERED: LIDOCAINE 5% TOPICAL PATCH ONE (12:02)
[2024-02-23] MEDS ORDERED: KETOROLAC TROMETHAMINE 15 MG/ML VIAL ONE (12:02)
[2024-02-23] MEDS: LIDOCAINE 5% TOPICAL PATCH TP ONE (12:08)
[2024-02-23] MEDS: KETOROLAC TROMETHAMINE 15 MG/ML VIAL IVPUSH ONE (12:08)
[2024-02-23] MEDS: METHOCARBAMOL 500 MG TABLET PO ONE (12:09)
[2024-02-23 12:49] LABS: TARGET CELLS 2+
[2024-02-23 12:50] LABS: CORRECTED WBC 6.53 10^3/uL; OVALOCYTE 2+; PLATELET ESTIMATE ADEQUATE
== END 2024-02-23 13:12 | disposition home or self-care (01) ==
LOC: FER 09:32
PROC: 3E033NZ Introduction of Analgesics, Hypnotics, Sedatives into Peripheral Vein, Percutaneous Approach (ICD-10-PCS; principal; 2024-02-23)
PROC: 3E0333Z Introduction of Anti-inflammatory into Peripheral Vein, Percutaneous Approach (ICD-10-PCS; 2024-02-23)
DX: D57.00 Hb-SS disease with crisis, unspecified (principal); M54.50 Low back pain, unspecified
CPT/HCPCS: 36415; 85027; 85045; 99284-25

== ENCOUNTER 2024-03-22 14:16 | Emergency (ER) | payer BC ==
[2024-03-22 14:26] VITALS: RESP 20; TEMP 99.1; BMI 25.7
[2024-03-22] MEDS ORDERED: ACETAMINOPHEN 325 MG TABLET (FP) PO ONE (14:32)
[2024-03-22] MEDS ORDERED: KETOROLAC TROMETHAMINE 15 MG/ML VIAL IM ONE (14:33)
[2024-03-22] MEDS ORDERED: ACETAMINOPHEN INJECTION 100 ML ONE (14:52)
[2024-03-22] MEDS ORDERED: HYDROmorphone HCL/PF 1 MG/ML VIAL ONE (14:52)
[2024-03-22] MEDS: HYDROmorphone HCL 2 MG TABLET PO ONE (14:53)
[2024-03-22] MEDS: LIDOCAINE 5% TOPICAL PATCH TP ONE (14:54)
[2024-03-22] MEDS: KETOROLAC TROMETHAMINE 15 MG/ML VIAL IM ONE (14:55)
[2024-03-22] MEDS: SODIUM CHLORIDE 0.9% 500 ML INFUS.BAG IV ONE (14:55)
[2024-03-22] MEDS: ACETAMINOPHEN 1000 MG/100 ML BAG IVPB ONE (14:55)
[2024-03-22] MEDS ORDERED: KETOROLAC TROMETHAMINE 15 MG/ML VIAL ONE (15:03)
[2024-03-22 16:43] VITALS: BP 136/68; PULSE 67
[2024-03-22] MEDS ORDERED: LIDOCAINE PATCH REMOVAL MC ONE (22:00)
== END 2024-03-22 16:50 | disposition home or self-care (01) ==
LOC: FER 14:16
PROC: 3E033NZ Introduction of Analgesics, Hypnotics, Sedatives into Peripheral Vein, Percutaneous Approach (ICD-10-PCS; principal; 2024-03-22)
PROC: 3E0133Z Introduction of Anti-inflammatory into Subcutaneous Tissue, Percutaneous Approach (ICD-10-PCS; 2024-03-22)
DX: D57.00 Hb-SS disease with crisis, unspecified (principal); M25.551 Pain in right hip; M79.606 Pain in leg, unspecified; R19.7 Diarrhea, unspecified
CPT/HCPCS: 99284-25; J0131

== ENCOUNTER 2025-03-20 16:58 | Emergency (ER) | payer BC ==
[2025-03-20 17:19] VITALS: TEMP 98.2; BMI 25.0
[2025-03-20 18:16] VITALS: RESP 20
[2025-03-20 18:26] LABS: CO2 28 mmol/L (21-32); CREATININE 0.8 mg/dl (0.6-1.3); GLUCOSE,RANDOM 91 mg/dl (74-106)
[2025-03-20] MEDS: SODIUM CHLORIDE 1,000 ML IV STA (18:41)
== END 2025-03-20 20:04 | disposition home or self-care (01) ==
LOC: FER 16:58
PROC: 3E0337Z Introduction of Electrolytic and Water Balance Substance into Peripheral Vein, Percutaneous Approach (ICD-10-PCS; principal; 2025-03-20)
DX: M79.651 Pain in right thigh (principal)
CPT/HCPCS: 36415; 80048; 82550; 99283-25